=== PATIENT | male | born 1950 | race Caucasian/White ===

== ENCOUNTER 2018-12-19 11:04 | Inpatient (IN) | payer MEDICARE, OTHER, SELFPAY ==
[2018-12-03 15:24] VITALS: BP 122/78; PULSE 67; RESP 16; TEMP 36.7; O2SAT 97; BMI 35.8
--- NOTE | 2018-12-03 16:11 | SDCEKG_ITS ---
Test Reason : Blood Pressure : / mmHG Vent. Rate : 067 BPM Atrial Rate : 067 BPM P-R Int : 178 ms QRS Dur : 088 ms QT Int : 402 ms P-R-T Axes : 049 043 015 degrees QTc Int : 424 ms Normal sinus rhythm Low voltage QRS Borderline ECG Confirmed by ROSY GARCIA, SELMA ([id number]), slot editor TIA ROJAS ([id number]) on 12/05/2018 10:18:19 AM Referred By: Terence Hernandez Confirmed By:SELMA GALLEGOS MD
[2018-12-03 16:51] LABS: Anion Gap 11 (5-15); BUN 16 mg/dL (7-18); BUN/Creat Ratio 21.4 RATIO (10-20); Calcium,Total 8.3 mg/dL (8.5-10.1); Chloride 105 mmol/L (98-107); Creatinine, Serum 0.75 mg/dL (0.70-1.30); EST Glomerular Filtration Rate 110 mL/min (>60); Est Glom Filt Rate - Afr Amer 133 mL/min (>60); Estimated Creatinine Clearance 62.91 ml/min; Glucose 101 mg/dL (74-106); Potassium 3.8 mmol/L (3.5-5.1); Sodium Level 140 mmol/L (136-145)
--- NOTE | 2018-12-05 21:23 | HP.PCM_ITS ---
History and Physical DATE OF SURGERY: 12/19/2018 SCHEDULED PROCEDURE: right total knee polyethylene exchange HISTORY OF PRESENT ILLNESS: This is a 68-year-old male who is been having ongoing pain in his right knee since his previous surgery. Patient underwent a right total knee arthroplasty by Dr. Cedric Zhu on April 18, 2017. Patient states the right knee pain never completely went away but was better after surgery than before surgery. Patient states he has seen progressive worsening of his knee pain. He has increased pain going up and down stairs, standing for extended periods of time. He gets intermittent swelling. Activities increase his his right knee pain. Patient also complains of ongoing left knee pain. Patient has undergone physical therapy and home exercises for the right knee. He states he has had increased pain with therapy and exercises and bilateral knees. He continues to have episodes of instability and difficulty with getting in and out of a car or chair. Has difficult times going up and down stairs. Patient has had pain over the pes anserine and Gerdy's tubercle. Patient has had previous corticosteroid injection in the right knee pes anserine with no relief in symptoms. Patient has also had workup for infection which was negative with normal ESR and CRP. Patient will be getting surgical clearance from his primary care physician. Patient states he will be undergoing a stress test prescribed from his primary care physician. Patient does have medical history pertinent for gastroesophageal reflux disease, asthma, emphysema, seizure disorder, sleep apnea with the requirement for CPAP machine. Patient currently denies any chest pain, shortness of breath, fevers chills, recent infections. After failing conservative measures and discussing treatment options with Dr. Terence Hernandez, the patient wishes to proceed with a right total knee polyethylene exchange. REVIEW OF SYSTEMS: ROS: Const: Denies change in appetite, fever,or weight change. CV: Denies chest pain, heart murmur and irregular heartbeat. Resp: Denies cough, pneumonia, SOB, tuberculosis and wheezing. GI: Denies constipation, diarrhea, difficulty swallowing, heartburn, nausea, bloody stools and vomiting. : Urinary: denies incontinence. Musculo: Denies leg swelling, limp, trouble walking and weakness. Skin: Denies Raynaud's, history of shingles and tattoo. Neuro: Reports tremor but denies ambulatory dysfunction, dizziness and numbness/tingling. Psych: Reports insomnia, but denies anxiety and stress. Lupillo/Lymph: Denies anemia, bleeding/bruising tendency and past transfusion. Reviewed, no changes. PAST MEDICAL HISTORY: Advance Care Plan: No Advance Directives Effective Date: 01/30/2017 PMH: Medical Problems: Arthritis, Asthma, Emphysema, Osteoporosis, Seizure Disorder, Sleep Apnea, Hard Of Hearing, lumbar stenosis Accidents: None Surgical Hx: Hernia Repair, Knee Arthroscopy Lt, Knee Arthroscopy Rt, Carpal Tunnel Release Rt, RT Ankle Teeth Pulled/ Jaw Work - (2017) Deviated Septum Knee Replacement RT - (04/18/2017) [email or web address] Anesthesia Complications: None Assistive Devices: Glasses Reviewed, no changes. SOCIAL HISTORY: SH: Marital: .Occupation: Retired.Work Status: Retired.Hand Dominance: Right- handed. Personal Habits: Cigarette Use: Former Cigarette Smoker.Alcohol: Occasionally.Drug Use: Currently uses Marijuana.Enjoy Exercising: Exercises 1-3 X/Week. Reviewed, no changes. VITALS: Ht: 66 Wt: 222lb Wt k.699 BMI: 35.8 BP: 122/84 Pulse: 82 Resp: 18 T: 97.8 T: 36.6C ALLERGIES: Penicillin Codeine MEDICATIONS: Trazodone HCL 100 mg 1 by mouth every day, Doxazosin Mesylate 4 mg one PO daily, Orphenadrine Citrate ER 100 mg take one tab by mouth every 12 hours, Primidone 250 mg take one PO tid, Albuterol Inhaler 2 puffs as needed, Aspirin 81 mg 1 by mouth a day, Symbicort 80-4.5 mcg/Act 2 puffs PO bid, Lovastatin 20 mg 1 tab PO daily, Myrbetriq 50 mg take one tablet by mouth every day, Ropinirole HCL 1 mg take one tablet by mouth every evening, Omeprazole 20 mg 1po bid, Fluticasone Propionate Nasal [place] 24- Hour 50 mcg/Act bid, Etodolac 500 mg 1 tab PO bid, Hydroxyzine HCL 25 mg take 1 or 2 tablets by mouth three times daily or as needed PRE-OP EXAM: General appearance:NORMAL Other: Eyes: Conjunctivae and lids: NORMAL Pupils: ERR Ears, Nose, Mouth, and Throat: NORMAL Other: Inspection of lips, teeth and gums: NORMAL Other: Neck: Examination of neck: no masses noted. Respiratory: Assessment of respiratory effort: NORMAL Other: Auscultation of lungs: clear to auscultation no wheezes, rhonchi or rales. Cardiovascular: Auscultation of heart: regular rate and rhythm, no murmurs, gallops or rubs. Gastrointestinal: Exam of abdomen: soft, nontender, nondistended bowel sounds present. PHYSICAL EXAMINATION: Patient walks with an antalgic gait. Previous right knee incision is well- healed without erythema or signs of infection. Patient does have tenderness to palpation over the pes anserine region. Patient does have anterior translation approximately 4-5 mm with anterior drawer testing. He has widening medially and laterally with varus valgus stress. She has moderate effusion. Range of motion of the right knee 0 of extension to 120 flexion. Sensation intact to light touch. Neurovascularly intact. IMAGING STUDIES: Previous x-rays of the right knee reveal stable well fixed right total knee replacement with cemented tibial implant press-fit femoral implant. Implants appear stable and well fixed when compared to previous x-rays. Alignment is appropriate. IMPRESSION: 1. Painful right total knee arthroplasty 2. Gastroesophageal reflux disease 3. Asthma 4. Emphysema 5. Seizure disorder 6. Sleep apnea with use of CPAP 7. Lumbar stenosis 8. Osteoporosis PLAN: Dr. Terence Hernandez did discuss and review with the patient all treatment options including surgical versus nonsurgical options. Patient does wish to proceed with the above-stated procedure. Potential risks, benefits, and complications of the procedure were discussed in detail including but not limited to , infection, nerve and blood vessel damage, persistent pain, numbness, tingling, paresthesias, blood clot, pulmonary embolism, and requirement for possible further surgery. The patient expressed full understanding and has no further questions for the doctor. Patient does agree to proceed with the above-stated procedure and has signed the surgery consent form. This dictation was created using voice recognition software. Phonetic and/or grammatical errors may exist.. ___ I have re-examined the patient. There are no clinical changes since date of exam. ___ See progress notes for changes. ___ Dictated on admission Date: Time: Signature:
[2018-12-19] VITALS (17 sets, daily range): BP systolic 119–144; BP diastolic 62–90; PULSE 67–88; RESP 16–20; TEMP 36.5–37.2; O2SAT 93–97; BMI 35.8
[2018-12-19] MEDS: oxyCODONE HCl Cr 10 MG Tablet PO (12:01)
[2018-12-19] MEDS: Lactated Ringers 1,000 ML 999 ML IV (12:02)
[2018-12-19] MEDS: Acetaminophen 500 MG Tablet 1000 MG PO ×2 (12:02→21:10)
[2018-12-19] MEDS: Celecoxib 200 MG Capsule 400 MG PO (12:02)
--- NOTE | 2018-12-19 13:13 | RAD_ITS ---
STUDY: X-RAY - RIGHT KNEE REASON FOR EXAM: Male, 68 years old. Total knee replacement. TECHNIQUE: 2 view(s) of the knee. COMPARISON: None. FINDINGS: Normal visualized distal femur. Normal visualized proximal tibia and fibula. Normal proximal tibiofibular articulation. The patient is status post total knee replacement. There is good alignment. Postoperative soft tissue changes. RAD/Knee 1 or 2 Views IMPRESSION: Status post total knee replacement. There is good alignment. Postoperative soft tissue changes. Electronically Signed: Lazarus Rutherford, at 15:25 EDT , Service support ,
--- NOTE | 2018-12-19 14:13 | PCM.OPRPT ---
Report of Operation Date of Procedure: 12/19/18 Pre-Operative Diagnosis: Right painful total knee arthroplasty, global instability Post-Operative Diagnosis: Right painful total knee arthroplasty, global instability Surgery/Procedure Performed:: Right total knee 1 component revision, polyethylene exchange Description of Surgical Findings:: Stable knee, good patella tracking crown and bridge dental lab technician: Zenon Vázquez Type of Anesthesia:: Spinal Anesthesiologist: Artemio Latif Special Medications: 600 mg clindamycin, 1 g TXA at incision, 1 g TXA closure, 10 mg Decadron, joint cocktail (5 mg Duramorph, 30 mL of 0.5% Ropivicaine, 1000 units of epinephrine, 30 mg of Toradol) Estimated Blood Loss (mL): 30 Fluids Replaced: 1300 ML crystalloid Description of Procedure: 68 yo M history of R TKA in April 2017 presents with mobile instability and hamstring pain with peds anserine bursitis. Reviewed options were discussed the patient. Based on the symptoms and failure to respond to conservative measures including therapy a polyethylene exchange is recommended. Risks and benefits of the procedure were discussed with the patient including but not limited to blood loss, DVTs, PEs, neurovascular damage, infection, general risk of anesthesia including loss of life. Demonstrated understanding and was able to sign informed consent. On the date of procedure patient'sR lower extremity was marked in the preoperative area. The patient was then taken back to the operating room where the patient was placed on the table in the supine position. All bony prominences were identified a well-padded. Anesthesia assumed control of the C-spine and airway and remained controlled throughout the remainder of the procedure. A tourniquet was placed on the operative thigh and the leg was prepped in a sterile fashion. The surgeon then scrubbed at this time .Upon reentering the room left lower extremity was draped in a standard orthopedic fashion. A timeout was then called and everyone agreed upon the side, the site, the procedure to be performed, patient's identity and antibiotics given. A midline skin incision was made and sharp dissection was taken down through skin subcutaneous tissue and fat. Appropriate flaps were elevated medially and laterally. His arthrotomy was identified and the standard medial parapatellar incision was made and the patella was subluxed laterally. The standard deep MCL release was done. At this point an aggressive synovectomy commenced. Our attention was first turned towards the subpatellar pouch and all suspicious synovium and tissues were debrided. We then directed our attention towards medial lateral gutters were these tissues were aggressively debrided. Knee was then flexed up the polyethylene was removed. Once polyethylene was removed we did the remainder of the synovium in the medial and lateral gutters and along the lateral structures and MCL. We then debrided the posterior knee. Knee was flexed up and culture was taken from the femoral notch. And also there was a membrane beneath the tibial baseplate that was removed and sent for culture. After we had completed our synovectomy and were happy with the joint. A 6 L of normal saline were then irrigated throughout the wound with low-pressure lavage and the wound was once again explored. All remaining tissue that was suspicious was seen in the wound was once again irrigated with normal saline. We then trialed polyethylene sizes and selected a 13 mm medial congruent polyethylene was then opened and put back into place after appropriate trialing. Tourniquet was let down and hemostasis was obtained as well as possible. Once the final components were placed the wound was copiously irrigated with normal saline solution. The wound was closed in a layer ruff fashion using #1 vicryl interrupted sutures for the arthrotomy, 2-0 interrupted Vicryl for the subcuticular layer and yenny for final skin closure. A sterile compressive dressing was then placed. The patient was then awakened from anesthesia, transferred to the [facility] and transferred to the PACU for recovery. Post op plan Patient will be weight-bear as tolerated, activity as tolerated. Follow-up in the office in 2 weeks for wound check and staple removal. 81 mg aspirin twice daily for DVT prophylaxis. Grafts/Implants Used: Bull persona vitamin E E medial congruent right 13 mm polyethylene size 8 - Complications No intraoperative complications - Admit VTE Documentation VTE Present on Admission: No VTE Mechan Device Prophylaxis: SCD's, Thigh High KARYN Hose VTE Pharm Prophylaxis ordered?: Yes
--- NOTE | 2018-12-19 14:20 | OP.PCM_ITS ---
Report of Operation Date of Procedure: 12/19/18 Pre-Operative Diagnosis: Right painful total knee arthroplasty, global ins tability Post-Operative Diagnosis: Right painful total knee arthroplasty, global instability Surgery/Procedure Performed:: Right total knee 1 component revision, polyethylene exchange Description of Surgical Findings:: Stable knee, good patella tracking cloth doffer: Zenon Vázquez Type of Anesthesia:: Spinal Anesthesiologist: Artemio Latif Special Medications: 600 mg clindamycin, 1 g TXA at incision, 1 g TXA closure, 10 mg Decadron, joint cocktail (5 mg Duramorph, 30 mL of 0.5% Ropivicaine, 1000 units of epinephrine, 30 mg of Toradol) Estimated Blood Loss (mL): 30 Fluids Replaced: 1300 ML crystalloid Description of Procedure: 68 yo M history of R TKA in April 2017 presents with mobile instability and hamstring pain with peds anserine bursitis. Reviewed options were discussed the patient. Based on the symptoms and failure to respond to conservative measures including therapy a polyethylene exchange is recommended. Risks and benefits of the procedure were discussed with the patient including but not limited to blood loss, DVTs, PEs, neurovascular damage, infection, general risk of anesthesia including loss of life. Demonstrated understanding and was able to sign informed consent. On the date of procedure patient'sR lower extremity was marked in the preoperative area. The patient was then taken back to the operating room where the patient was placed on the table in the supine position. All bony prominences were identified a well-padded. Anesthesia assumed control of the C-spine and airway and remained controlled throughout the remainder of the procedure. A tourniquet was placed on the operative thigh and the leg was prepped in a sterile fashion. The surgeon then scrubbed at this time .Upon reentering the room left lower extremity was draped in a standard orthopedic fashion. A timeout was then called and everyone agreed upon the side, the site, the procedure to be performed, patient's identity and antibiotics given. A midline skin incision was made and sharp dissection was taken down through skin subcutaneous tissue and fat. Appropriate flaps were elevated medially and laterally. His arthrotomy was identified and the standard medial parapatellar incision was made and the patella was subluxed laterally. The standard deep MCL release was done. At this point an aggressive synovectomy commenced. Our attention was first turned towards the subpatellar pouch and all suspicious synovium and tissues were debrided. We then directed our attention towards medial lateral gutters were these tissues were aggressively debrided. Knee was then flexed up the polyethylene was removed. Once polyethylene was removed we did the remainder of the synovium in the medial and lateral gutters and along the lateral structures and MCL. We then debrided the posterior knee. Knee was flexed up and culture was taken from the femoral notch. And also there was a membrane beneath the tibial baseplate that was removed and sent for culture. After we had completed our synovectomy and were happy with the joint. A 6 L of normal saline were then irrigated throughout the wound with low-pressure lavage and the wound was once again explored. All remaining tissue that was suspicious was seen in the wound was once again irrigated with normal saline. We then trialed polyethylene sizes and selected a 13 mm medial congruent polyethylene was then opened and put back into place after appropriate trialing. Tourniquet was let down and hemostasis was obtained as well as possible. Once the final components were placed the wound was copiously irrigated with normal saline solution. The wound was closed in a layer ruff fashion using #1 vicryl interrupted sutures for the arthrotomy, 2-0 interrupted Vicryl for the subcuticular layer and yenny for final skin closure. A sterile compressive dressing was then placed. The patient was then awakened from anesthesia, transferred to the [facility] and transferred to the PACU for recovery. Post op plan Patient will be weight-bear as tolerated, activity as tolerated. Follow-up in the office in 2 weeks for wound check and staple removal. 81 mg aspirin twice daily for DVT prophylaxis. Grafts/Implants Used: Bull persona vitamin E E medial congruent right 13 mm polyethylene size 8 - Complications No intraoperative complications - Admit VTE Documentation VTE Present on Admission: No VTE Mechan Device Prophylaxis: SCD's, Thigh High KARYN Hose VTE Pharm Prophylaxis ordered?: Yes
[2018-12-19] MEDS: Scopolamine 1mg/72hr Patch 1 PATCH TD (15:09)
[2018-12-19] MEDS: oxyCODONE 5 MG Tablet PO ×2 (16:30→20:40)
[2018-12-19] MEDS: Ensure Clear 120 ML Liquid PO (18:33)
--- NOTE | 2018-12-19 19:44 | PCM.PN.HOSP ---
Subjective: Hospitalist consult for medical management This 68-year-old gentleman with multiple comorbidities as listed below had elective right total knee 1 component revision with polyethylene exchange Today on 12/19/2018. Patient had her right total knee arthroplasty by Dr. Zhu on April 18, 2017. Today surgery was done as patient continued pain in the right knee, getting progressively worse after first surgery. Patient has mild to moderate right knee pain 5/10 after surgery. Right knee dressing is intact with ice bag on it. Denies acute symptoms Chest pain, shortness of breath or palpitation. Past medical history: Seizure disorder, last one about 15 years ago had a breakthrough seizure after discontinuation about 15 years ago. Morbid obesity, obstructive sleep apnea, asthma/COPD. Lumbar spinal stenosis and hard of hearing Past surgical history: Left and right knee arthroscopy. Hernia repair. Right knee arthroplasty in April 2017 Vitals/I&O's: Vital Signs Temp Pulse Resp BP Pulse Ox 98.1 F 76 18 130/82 H 95 12/19/18 18:02 12/19/18 18:02 12/19/18 18:02 12/19/18 18:02 12/19/18 18:02 Oxygen Delivery Method Room Air Weight: 222 lb 0.017 oz Body Mass Index (BMI) 35.8 Intake and Output for Last 24 Hours 12/17/18 12/18/18 12/19/18 23:59 23:59 23:59 Intake Total 3000 / 3000 Balance 3000 / 3000 General: Alert, Oriented x3, Cooperative HEENT: Atraumatic, PERRLA, EOMI, Normocephalic, - - Chronic sinusitis. Oral: Dry Mucosa Neck: Supple, No JVD, Negative Carotid Bruits Lungs: No rhonchi, No wheeze, No rales, Diminished - Air entry slightly diminished in both lung bases Cardiovascular: Regular rate, Regular Rhythm, Normal S1, Normal S2, No murmurs Abdomen: Bowel Sounds Present, Soft, Non Tender, Non-Distended Extremities: No edema, Capillary Refill Less than 3 Seconds Skin: No rashes, No breakdown Musculoskeletal: Arthritic Changes, Tenderness - Postop right knee tenderness Neurological: Cranial nerves II-XII grossly intact, Deep Tendon Reflexes 2+/4 and Symmetrical, Neuro grossly intact Psych/Mental Status: Normal Affect, Appropriate Current Medications Acetaminophen (Tylenol) 1,000 mg PO Q8 RANDY Last Admin: 12/19/18 18:27 Dose: Not Given Albuterol Sulfate (Ventolin Aerosols) 2.5 mg INHALATION Q6H PRN PRN PRN Reason: COPD Albuterol Sulfate (Ventolin Aerosols) 2.5 mg INHALATION Q6HWA.RT [facility] Aspirin (Aspirin, Baby) 81 mg PO BID [facility] Atorvastatin Calcium (Lipitor) 5 mg PO QHS [facility] Budesonide (Pulmicort Aerosol) 0.5 mg INHALATION Q12H.RT [facility] Doxazosin Mesylate (Cardura) 4 mg PO QHS [facility] Famotidine (Pepcid) 20 mg PO DAILY [facility] Fluticasone Propionate (Flonase Nasal [place]) 2 spray NASAL PRN PRN PRN Reason: ALLERGIES Hydroxyzine Pamoate (Vistaril Pamoate Capsule) 50 mg PO QHS [facility] Clindamycin Phosphate 600 mg/ (Dextrose) 54 mls @ 162 mls/hr IV Q6H [facility] Stop: 12/20/18 07:19 Lactated Ringer's () 1,000 mls @ 100 mls/hr IV .Q10H [facility] Last Admin: 12/19/18 18:27 Dose: Not Given Ketorolac Tromethamine (Toradol) 15 mg IV Q6H PRN PRN PRN Reason: MILD-MOD PAIN (1-5/10) Melatonin (Melatonin) 10 mg PO QHS [facility] Meloxicam (Mobic) 7.5 mg PO BID [facility] Morphine Sulfate () 2 - 4 mg IV Q2H PRN PRN PRN Reason: SEVERE PAIN (6-10/10) Morphine Sulfate () 2 - 4 mg IV Q2H PRN PRN PRN Reason: SEVERE PAIN (6-10/10) Nutritional Formula (Lactose Free) (Ensure Clear) 120 ml PO TIDCM [facility] Last Admin: 12/19/18 18:33 Dose: 120 ml Ondansetron HCl (Zofran) 4 mg IV Q8H PRN PRN PRN Reason: NAUSEA Orphenadrine Citrate (Norflex Er) 100 mg PO Q12 [facility] Oxycodone HCl (Oxyir) 5 - 10 mg PO Q4H PRN PRN PRN Reason: MOD-SEVERE PAIN (4-10/10) Last Admin: 12/19/18 16:30 Dose: 10 mg Pantoprazole Sodium (Protonix) 40 mg PO DAILY [facility] Pramipexole Dihydrochloride (Mirapex) 0.5 mg PO QHS [facility] Primidone (Mysoline) 250 mg PO TID [facility] Last Admin: 12/19/18 18:27 Dose: Not Given Promethazine HCl (Phenergan) 12.5 mg IM Q6H PRN PRN; Protocol PRN Reason: NAUSEA/VOMITING Pseudoephedrine HCl (Sudafed) 30 mg PO Q8H PRN PRN PRN Reason: Cold Symptons Senna/Docusate Sodium (Senokot-S, [place]-Colace) 2 tablet PO BID [facility] Sodium Chloride () 5 - 15 ml IV UD PRN PRN Reason: SALINE FLUSH Trazodone HCl (Desyrel) 100 mg PO QHS [facility] Medical Necessity - Tobacco Use Smoking Status: Former smoker Assessment/Plan All Active Problems Status post total right knee replacement (Acute) Primary osteoarthritis of left knee (Acute) Primary osteoarthritis of right knee (Acute) Presence of artificial knee joint (Acute) Primary osteoarthritis of knees, bilateral (Acute) This 68-year-old gentleman with multiple comorbidities as listed below had elective right total knee 1 component revision with polyethylene exchange Today on 12/19/2018. Patient had her right total knee arthroplasty by Dr. Zhu on April 18, 2017. Today surgery was done as patient continued pain in the right knee, getting progressively worse after first surgery. Patient has mild to moderate right knee pain 5/10 after surgery. Right knee dressing is intact with ice bag on it. Denies acute symptoms Chest pain, shortness of breath or palpitation. EKG normal sinus rhythm with low voltage QRS. 1. Right knee 1 component revision with polyethylene exchange secondary to right knee DJD with continued pain after for surgery: Patient is being admitted on [facility] floor. PT and OT ordered. On aspirin 81 mg twice daily. Pain control. 2. Asthma/COPD, obstructive sleep apnea on CPAP and chronic sinusitis: Patient is on Pulmicort aerosol, and nasal spray. DuoNeb as needed. 3. Epilepsy disorder: Continue home medication 4. BPH: Patient did not had urine output after surgery which was completed afternoon today. Bladder scan every 4 hourly. A straight cath if urine retention is more than 200 mL. Continue doxazosin. 5. Other disorders include dyslipidemia, osteoporosis and chronic degenerative joint disease of knees and lumbar spinal stenosis: Patient has mild insomnia, and anxiety: On trazodone. Bowel and bladder care: On a stool softener. Code Visit Inpatient E&M: 38812 Init Hosp L2
[2018-12-19] MEDS: Budesonide Respules 0.5 MG/2 ML AMPUL.NEB. INHALATION (19:49)
--- NOTE | 2018-12-19 19:49 | PN_ITS ---
Subjective: Hospitalist consult for medical management This 68-year-old gentleman with multiple comorbidities as listed below had elective right total knee 1 component revision with polyethylene exchange Today on 12/19/2018. Patient had her right total knee arthroplasty by Dr. Zhu on April 18, 2017. Today surgery was done as patient continued pain in the right knee, getting progressively worse after first surgery. Patient has mild to moderate right knee pain 5/10 after surgery. Right knee dressing is intact with ice bag on it. Denies acute symptoms Chest pain, shortness of breath or palpitation. Past medical history: Seizure disorder, last one about 15 years ago had a breakthrough seizure after discontinuation about 15 years ago. Morbid obesity, obstructive sleep apnea, asthma/COPD. Lumbar spinal stenosis and hard of hearing Past surgical history: Left and right knee arthroscopy. Hernia repair. Right knee arthroplasty in April 2017 Vitals/I&O's: Vital Signs Temp Pulse Resp BP Pulse Ox 98.1 F 76 18 130/82 H 95 12/19/18 18:02 12/19/18 18:02 12/19/18 18:02 12/19/18 18:02 12/19/18 18:02 Oxygen Delivery Method Room Air Weight: 222 lb 0.017 oz Body Mass Index (BMI) 35.8 Intake and Output for Last 24 Hours 12/17/18 12/18/18 12/19/18 23:59 23:59 23:59 Intake Total 3000 / 3000 Balance 3000 / 3000 General: Alert, Oriented x3, Cooperative HEENT: Atraumatic, PERRLA, EOMI, Normocephalic, - - Chronic sinusitis. Oral: Dry Mucosa Neck: Supple, No JVD, Negative Carotid Bruits Lungs: No rhonchi, No wheeze, No rales, Diminished - Air entry slightly diminished in both lung bases Cardiovascular: Regular rate, Regular Rhythm, Normal S1, Normal S2, No murmurs Abdomen: Bowel Sounds Present, Soft, Non Tender, Non-Distended Extremities: No edema, Capillary Refill Less than 3 Seconds Skin: No rashes, No breakdown Musculoskeletal: Arthritic Changes, Tenderness - Postop right knee tenderness Neurological: Cranial nerves II-XII grossly intact, Deep Tendon Reflexes 2+/4 and Symmetrical, Neuro grossly intact Psych/Mental Status: Normal Affect, Appropriate Current Medications Acetaminophen (Tylenol) 1,000 mg PO Q8 [facility] Last Admin: 12/19/18 18:27 Dose: Not Given Albuterol Sulfate (Ventolin Aerosols) 2.5 mg INHALATION Q6H PRN PRN PRN Reason: COPD Albuterol Sulfate (Ventolin Aerosols) 2.5 mg INHALATION Q6HWA.RT [facility] Aspirin (Aspirin, Baby) 81 mg PO BID [facility] Atorvastatin Calcium (Lipitor) 5 mg PO QHS [facility] Budesonide (Pulmicort Aerosol) 0.5 mg INHALATION Q12H.RT [facility] Doxazosin Mesylate (Cardura) 4 mg PO QHS [facility] Famotidine (Pepcid) 20 mg PO DAILY [facility] Fluticasone Propionate (Flonase Nasal [place]) 2 spray NASAL PRN PRN PRN Reason: ALLERGIES Hydroxyzine Pamoate (Vistaril Pamoate Capsule) 50 mg PO QHS [facility] Clindamycin Phosphate 600 mg/ (Dextrose) 54 mls @ 162 mls/hr IV Q6H [facility] Stop: 12/20/18 07:19 Lactated Ringer's () 1,000 mls @ 100 mls/hr IV .Q10H [facility] Last Admin: 12/19/18 18:27 Dose: Not Given Ketorolac Tromethamine (Toradol) 15 mg IV Q6H PRN PRN PRN Reason: MILD-MOD PAIN (1-5/10) Melatonin (Melatonin) 10 mg PO QHS [facility] Meloxicam (Mobic) 7.5 mg PO BID [facility] Morphine Sulfate () 2 - 4 mg IV Q2H PRN PRN PRN Reason: SEVERE PAIN (6-10/10) Morphine Sulfate () 2 - 4 mg IV Q2H PRN PRN PRN Reason: SEVERE PAIN (6-10/10) Nutritional Formula (Lactose Free) (Ensure Clear) 120 ml PO TIDCM [facility] Last Admin: 12/19/18 18:33 Dose: 120 ml Ondansetron HCl (Zofran) 4 mg IV Q8H PRN PRN PRN Reason: NAUSEA Orphenadrine Citrate (Norflex Er) 100 mg PO Q12 [facility] Oxycodone HCl (Oxyir) 5 - 10 mg PO Q4H PRN PRN PRN Reason: MOD-SEVERE PAIN (4-10/10) Last Admin: 12/19/18 16:30 Dose: 10 mg Pantoprazole Sodium (Protonix) 40 mg PO DAILY [facility] Pramipexole Dihydrochloride (Mirapex) 0.5 mg PO QHS [facility] Primidone (Mysoline) 250 mg PO TID [facility] Last Admin: 12/19/18 18:27 Dose: Not Given Promethazine HCl (Phenergan) 12.5 mg IM Q6H PRN PRN; Protocol PRN Reason: NAUSEA/VOMITING Pseudoephedrine HCl (Sudafed) 30 mg PO Q8H PRN PRN PRN Reason: Cold Symptons Senna/Docusate Sodium (Senokot-S, Alma-Colace) 2 tablet PO BID [facility] Sodium Chloride () 5 - 15 ml IV UD PRN PRN Reason: SALINE FLUSH Trazodone HCl (Desyrel) 100 mg PO QHS [facility] Medical Necessity - Tobacco Use Smoking Status: Former smoker Assessment/Plan All Active Problems Status post total right knee replacement (Acute) Primary osteoarthritis of left knee (Acute) Primary osteoarthritis of right knee (Acute) Presence of artificial knee joint (Acute) Primary osteoarthritis of knees, bilateral (Acute) This 68-year-old gentleman with multiple comorbidities as listed below had elective right total knee 1 component revision with polyethylene exchange Today on 12/19/2018. Patient had her right total knee arthroplasty by Dr. Zhu on April 18, 2017. Today surgery was done as patient continued pain in the right knee, getting progressively worse after first surgery. Patient has mild to moderate right knee pain 5/10 after surgery. Right knee dressing is intact with ice bag on it. Denies acute symptoms Chest pain, shortness of breath or palpitation. EKG normal sinus rhythm with low voltage QRS. 1. Right knee 1 component revision with polyethylene exchange secondary to right knee DJD with continued pain after for surgery: Patient is being admitted on [facility] floor. PT and OT ordered. On aspirin 81 mg twice daily. Pain control. 2. Asthma/COPD, obstructive sleep apnea on CPAP and chronic sinusitis: Patient is on Pulmicort aerosol, and nasal spray. DuoNeb as needed. 3. Epilepsy disorder: Continue home medication 4. BPH: Patient did not had urine output after surgery which was completed afternoon today. Bladder scan every 4 hourly. A straight cath if urine retention is more than 200 mL. Continue doxazosin. 5. Other disorders include dyslipidemia, osteoporosis and chronic degenerative joint disease of knees and lumbar spinal stenosis: Patient has mild insomnia, and anxiety: On trazodone. Bowel and bladder care: On a stool softener. Code Visit Inpatient E&M: 43433 Init Hosp L2
[2018-12-19] MEDS: Albuterol 2.5 MG/3 ML VIAL.NEB. INHALATION (19:50)
[2018-12-19] MEDS: Aspirin 81 MG TAB.CHEW PO (21:10)
[2018-12-19] MEDS: Atorvastatin Calcium 10 MG Tablet 5 MG PO (21:11)
[2018-12-19] MEDS: Senna/Docusate Sodium 1 Tablet 2 TABLET PO (21:11)
[2018-12-19] MEDS: Orphenadrine 100 MG Tablet PO (21:12)
[2018-12-19] MEDS: Pramipexole Di-HCl 0.5 MG Tablet PO (21:16)
[2018-12-19] MEDS: Primidone 250 MG Tablet PO (21:24)
[2018-12-19] MEDS: Morphine 2 MG/ML Syringe IV (21:26)
[2018-12-19] MEDS: MELATONIN 10 MG TABLET PO (23:46)
[2018-12-19] MEDS: traZODone 100 MG Tablet PO (23:46)
[2018-12-19] MEDS: hydrOXYzine PAM 25 MG Capsule 50 MG PO (23:46)
[2018-12-19] MEDS: Doxazosin 4 MG Tablet PO (23:46)
--- NOTE | 2018-12-19 23:49 | CPS ---
Pt. unable to bring home BiPaP unit in. Pt. wouldn't like to rent hospital unit for the night either. Pt. told me he usually has oxygen bled into home unit at two liters. Set pt. up with a 28%/4L ventri mask for the night. Wanted to use the ventri mask because it would feel more like his home BiPaP mask.
[2018-12-19] MEDS: guaiFENesin 1,200 MG Tablet 1200 MG PO (23:52)
[2018-12-20] VITALS (8 sets, daily range): BP systolic 91–119; BP diastolic 48–75; PULSE 66–86; RESP 16–20; TEMP 36.4–37.1; O2SAT 93–96
[2018-12-20] MEDS: oxyCODONE 5 MG Tablet PO ×5 (01:18→23:45)
[2018-12-20] MEDS: 0.9% NaCl Peripheral Flush Adult/Peds IV ×4 (03:26→21:47)
[2018-12-20] MEDS: Morphine 2 MG/ML Syringe IV ×3 (03:26→21:47)
[2018-12-20] MEDS: Acetaminophen 500 MG Tablet 1000 MG PO ×3 (06:09→22:02)
[2018-12-20] MEDS: Primidone 250 MG Tablet PO ×3 (06:11→22:02)
[2018-12-20 06:15] LABS: Hematocrit 39.5 % (40-54); Hemoglobin 12.8 g/dl (13.0-16.5); Mean Corp Hgb Conc 32.4 g/gl (32-36); Mean Corpuscular Hgb 29.8 pg (27.0-32.0); Mean Corpuscular Volume 91.9 fL (80-94); Mean Platelet Vol. 9.6 fl (6.2-12.0); Platelet Count 234 K/mm3 (150-450); RBC Distribution Width SD 45.9 fl (35.1-43.9); White Blood Count 9.9 K/mm3 (4.4-11.0)
[2018-12-20 06:19] LABS: Anion Gap 7 (5-15); BUN 16 mg/dL (7-18); BUN/Creat Ratio 20.1 RATIO (10-20); Calcium,Total 8.1 mg/dL (8.5-10.1); Chloride 111 mmol/L (98-107); EST Glomerular Filtration Rate 102 mL/min (>60); Est Glom Filt Rate - Afr Amer 124 mL/min (>60); Estimated Creatinine Clearance 78.64 ml/min; Glucose 93 mg/dL (74-106); Potassium 4.3 mmol/L (3.5-5.1); Sodium Level 144 mmol/L (136-145)
[2018-12-20 06:20] LABS: Scan Indicated on CBC? Y/N NO
[2018-12-20] MEDS: Budesonide Respules 0.5 MG/2 ML AMPUL.NEB. INHALATION ×2 (07:03→19:35)
[2018-12-20] MEDS: Albuterol 2.5 MG/3 ML VIAL.NEB. INHALATION ×2 (07:03→19:35)
[2018-12-20] MEDS: Aspirin 81 MG TAB.CHEW PO ×2 (08:04→22:02)
[2018-12-20] MEDS: Senna/Docusate Sodium 1 Tablet 2 TABLET PO ×2 (08:04→22:02)
[2018-12-20] MEDS: Famotidine 20 MG Tablet PO (08:05)
[2018-12-20] MEDS: Pantoprazole Sodium 40 MG Tablet PO (08:06)
[2018-12-20] MEDS: Orphenadrine 100 MG Tablet PO ×2 (08:06→22:02)
[2018-12-20] MEDS: Mirabegron 50 MG TAB.ER.24H PO (08:06)
[2018-12-20] MEDS: guaiFENesin 1,200 MG Tablet 1200 MG PO ×2 (08:10→22:02)
--- NOTE | 2018-12-20 09:34 | PCM.PN.ORT ---
Subjective: The patient was sitting in bedside chair upon examination. Patient denies any chest pain, shortness of breath, dizziness, lightheadedness, nausea or vomiting, or calf pain. At rest patient states the pain is controlled. He does report pain in the right knee when he is up moving. He has not had physical therapy at this point. No adverse overnight events. Patient is concerned with the pain and physical therapy. Plan is for patient to go home when medically ready. Objective: Vital signs stable and afebrile. Patient is able to plantarflex and dorsiflex actively. Sensation is intact to light touch to saphenous, sural, superficial and deep peroneal, and tibial distribution. Dressing is clean dry and intact. Negative Homans bilaterally, negative signs and symptoms of DVT. - Physical Exam General: Alert, Oriented x3, Cooperative, No apparent distress Vital Signs Temp Pulse Resp BP Pulse Ox 97.6 F L 86 16 112/59 L 95 12/20/18 08:15 12/20/18 08:15 12/20/18 08:15 12/20/18 08:15 12/20/18 08:15 Oxygen Flow Rate (L/min) 4 Oxygen Delivery Method Room Air Weight: 100.698 kg Body Mass Index (BMI) 35.8 Intake and Output for Last 24 Hours 12/18/18 12/19/18 12/20/18 23:59 23:59 23:59 Intake Total 3990 / 3990 383 / 383 Output Total 600 / 600 600 / 600 Balance 3390 / 3390 -217 / -217 Laboratory Tests Past 24 Hrs 12/20/18 12/20/18 05:34 05:34 WBC 9.9 RBC 4.30 L Hgb 12.8 L Hct 39.5 L MCV 91.9 MCH 29.8 MCHC 32.4 RDW 14.0 RDW Differential 45.9 H Plt Count 234 MPV 9.6 Sodium 144 Potassium 4.3 Chloride 111 H Carbon Dioxide 26.0 Anion Gap 7 BUN 16 Creatinine 0.80 Estim Creat Clear Calc 78.64 Est GFR (MDRD) Af Amer 124 Est GFR (MDRD) Non-Af 102 BUN/Creatinine Ratio 20.1 H Glucose 93 Calcium 8.1 L Medical Necessity - Tobacco Use Smoking Status: Former smoker Assessment/Plan All Active Problems Status post total right knee replacement (Acute) Primary osteoarthritis of left knee (Acute) Primary osteoarthritis of right knee (Acute) Presence of artificial knee joint (Acute) Primary osteoarthritis of knees, bilateral (Acute) 1. S/P right revision total knee arthroplasty with polyethylene exchange POD #1 2. Continue Pain Medications: Tylenol and OxyIR 3. DVT Prophylaxis: Aspirin 81 mg twice daily with food for 4 weeks postoperatively 4. PT/OT: Weightbearing as tolerated 5. H & H: 12.8/39.5, asymptomatic 6. Encouraged Incentive Spirometry 7. Continue postoperative medical management per medicine 8. Disposition: Patient is continued to have some pain associated with weightbearing today. I would like to see how patient does with physical therapy today. If patient pain is well controlled tomorrow and tolerates therapy plan will be for discharge home tomorrow.
--- NOTE | 2018-12-20 09:37 | PCM.DC.TKR ---
Discharge Diet: No Restrictions Discharge Activity: May Not Drive May shower in (days): 1 - Turned dressing away from water Ice area for (Minutes): 20 - every hour while awake. Weight Bearing Status: Weight bearing as tolerated Elevate: Operative Extremity Additional Activity Instructions:: Wear elastic stockings for 2 weeks after your surgery. Call your doctor if your incision/area has: Continuous Slow Oozing, Sudden Increased Bleeding, Increased Pain/ Swelling, Increased Redness, Foul Smelling Discharge Call your doctor if you observe: Fever of 101 or Higher, Coldness, Increased Pain, Numbness or Tingling, Change in Color, Calf discomfort, Uncontrolled pain Remove Dressing in (days):: 3 - Okay to remove dressing on December 24, 2018 Additional Instructions: Follow [facility] postop instructions Allergies/Adverse Reactions: Allergies Penicillins Allergy (Verified 12/19/18 11:32) Itching codeine Adverse Reaction (Verified 12/19/18 11:32) Itching Medications to take at Discharge Albuterol Inhaler [Ventolin Hfa] 2 puff INHALATION Q6H PRN PRN 04/05/17 Ascorbic Acid [Vitamin C] 500 mg PO DAILY@0800 04/05/17 Doxazosin Mesylate [Cardura] 4 mg PO QHS 04/05/17 Fluticasone 0.05% [Flonase Nasal [place]] 2 spray NASAL PRN PRN 04/05/17 Glucosa Wolf 2Kcl/Chondroitin Wolf [Glucosamine-Chondroitin Tablet] 1 each PO DAILY 04/05/17 Hydroxyzine HCl 50 mg PO QHS 04/05/17 Lovastatin [Mevacor] 20 mg PO DAILY 04/05/17 Melatonin 10 mg PO QHS 04/05/17 Multivitamin [Multiple Vitamins] 1 each PO DAILY 04/05/17 Orphenadrine Citrate [Orphenadrine Citrate ER] 100 mg PO Q12H 04/05/17 Primidone [Mysoline] 250 mg PO TID 04/05/17 Trazodone HCl 100 mg PO QHS 04/05/17 Vitamin B Comp W-C [Allbee W/C Caplet, Thera B Comp/C] 1 capsule PO DAILY 04/05/17 Pseudoephedrine [Sudafed] 30 mg PO Q8H PRN PRN tablet 05/09/17 Acetaminophen [Tylenol] 1,000 mg PO Q8 12/03/18 Aspirin [Aspirin EC] 81 mg PO DAILY 12/03/18 Budesonide/Formoterol 160/4.5 [Symbicort 160/4.5 Mcg Inhaler (SP)] 2 puff INHALATION BID 12/03/18 Etodolac [Etodolac ER] 500 mg PO BID 12/03/18 Mirabegron [Myrbetriq] 50 mg PO DAILY 12/03/18 Omeprazole 40 mg PO DAILY 12/03/18 Ropinirole HCl 1 mg PO QHS 12/03/18 Primary Care Physician: Turner Holley [Primary Care Provider] - Test Results: Test results from this visit will be discussed in further detail at your follow-up appointment, if applicable. Please Follow Up With: Physical therapy When: 12/24/18 @ 2:00 with Yao Please Follow Up With: Zenon Vázquez PA-C When: 01/02/19 @ 11:00
--- NOTE | 2018-12-20 11:15 | CASEMGMT ---
RN ASHLEE Face to Face with patient for initial transition planning/care coordination assessment. RN ASHLEE introduced self and role at [facility]. Patient lying in bed, alert and oriented. Patient willing to participate in assessment and is able to answer all questions appropriately. Care providers, pharmacy, and demographics verified. Patient wishes to discharge home and has outpatient therapy setup with [facility] in [facility]. Patient states he has no further needs or concerns at this time. CM to follow for discharge planning needs that may arise. PCP: Kishan Specialists: aniyah Hernandez Preferred Pharmacy: [facility] Insurance: [facility] Prescription Benefit: Yes Living Will/HPOA: None LNOK: Living Arrangements: Patient lives with in 2 story home with 1st floor setup. Patient states he is independent at home. Transportation: DME/HHC: Patient has walker and shower chair at home. Disposition Plan: Patient to discharge home with outpatient therapy, family support, and follow-up plans in place. Prerna NICKERSON, RN, CM
--- NOTE | 2018-12-20 16:52 | PN_ITS ---
Subjective: She was seen and examined today, I talked briefly with orthopedic surgery concerning his care today. Patient states he has post incisional pain but otherwise is doing well. - Physical Exam General: Alert, Oriented x3, Cooperative, No apparent distress, Well developed, Well nourished HEENT: Atraumatic, PERRLA, EOMI, Normocephalic Oral: Moist Mucosa Neck: Supple, No JVD, Negative Carotid Bruits, No Nuchal Rigidity, Trachea Midline, Thyroid Normal Size and Texture Lungs: Clear to auscultation, Normal air movement, No rhonchi, No wheeze, No rales Cardiovascular: Regular rate, Regular Rhythm, Normal S1, Normal S2, No murmurs, No Ectopic Activity Abdomen: Bowel Sounds Present, Soft, Non Tender, Non-Distended Extremities: No clubbing, No cyanosis, Capillary Refill Less than 3 Seconds Skin: No rashes Neurological: Cranial nerves II-XII grossly intact, Neuro grossly intact, Senso ry exam intact to light touch and pain, Coordination normal Psych/Mental Status: Normal Affect, Appropriate, Alert and oriented to time, place, person, mood and affect Vital Signs Temp Pulse Resp BP Pulse Ox 98.0 F 81 18 94/48 L 96 12/20/18 14:15 12/20/18 14:15 12/20/18 14:15 12/20/18 14:15 12/20/18 14:15 Oxygen Flow Rate (L/min) 4 Oxygen Delivery Method Room Air Weight: 100.698 kg Body Mass Index (BMI) 35.8 Intake and Output for Last 24 Hours 12/18/18 12/19/18 12/20/18 23:59 23:59 23:59 Intake Total 3990 / 3990 383 / 383 Output Total 600 / 600 600 / 600 Balance 3390 / 3390 -217 / -217 Microbiology Past 72 Hours 12/19/18 15:03 Gram Stain - Final Tissue - Knee Wound Culture - Preliminary No growth-Final to follow 12/19/18 15:03 Gram Stain - Final Tissue - Knee Wound Culture - Preliminary No growth-Final to follow 12/19/18 15:03 Gram Stain - Final Biopsy - Leg, Right Wound Culture - Preliminary No growth-Final to follow Laboratory Tests Past 24 Hrs 12/20/18 12/20/18 05:34 05:34 WBC 9.9 RBC 4.30 L Hgb 12.8 L Hct 39.5 L MCV 91.9 MCH 29.8 MCHC 32.4 RDW 14.0 RDW Differential 45.9 H Plt Count 234 MPV 9.6 Sodium 144 Potassium 4.3 Chloride 111 H Carbon Dioxide 26.0 Anion Gap 7 BUN 16 Creatinine 0.80 Estim Creat Clear Calc 78.64 Est GFR (MDRD) Af Amer 124 Est GFR (MDRD) Non-Af 102 BUN/Creatinine Ratio 20.1 H Glucose 93 Calcium 8.1 L Medical Necessity - Tobacco Use Smoking Status: Former smoker Assessment/Plan All Active Problems Status post total right knee replacement (Acute) Primary osteoarthritis of left knee (Acute) Primary osteoarthritis of right knee (Acute) Presence of artificial knee joint (Acute) Primary osteoarthritis of knees, bilateral (Acute) #1 epilepsy-continue home medication #2 BPH #3 asthma/chronic obstructive pulmonary disease #4 obstructive sleep apnea #5 status postop day #1 right total knee 1 component revision, polyethylene exchange-continue PT OT Code Visit Inpatient E&M: 33698 Subs Hosp L2
--- NOTE | 2018-12-20 19:21 | EKGRS_ITS ---
Test Reason : CHEST PAIN Blood Pressure : / mmHG Vent. Rate : 075 BPM Atrial Rate : 075 BPM P-R Int : 166 ms QRS Dur : 082 ms QT Int : 380 ms P-R-T Axes : 038 033 040 degrees QTc Int : 424 ms Normal sinus rhythm Low voltage QRS Borderline ECG When compared with ECG of 03-DEC-2018 15:48, Non-specific change in ST segment in Inferior leads Confirmed by BERYL MEDRANO ([id number]), material expeditor TIA ROJAS ([id number]) on 12/24/2018 5:11:46 PM Referred By: Terence Hernandez Confirmed By:BERYL MEDRANO
--- NOTE | 2018-12-20 19:58 | NURSING ---
Pt c/o 5/10 rt knee pain. Oxyir last given at 1805. Toradol obtained and scanned. Upon flushing pt's IV with saline, site was tender and leaking. Pt decided to hold off on getting a new IV. Toradol discarded and IV discontinued. No redness or edema noted to IV site. Polar care applied to rt knee to assist with pain.
[2018-12-20] MEDS: Meloxicam 7.5 MG Tablet PO (22:02)
[2018-12-20] MEDS: Atorvastatin Calcium 10 MG Tablet 5 MG PO (22:02)
[2018-12-20] MEDS: hydrOXYzine PAM 25 MG Capsule 50 MG PO (22:02)
[2018-12-20] MEDS: traZODone 100 MG Tablet PO (23:45)
[2018-12-20] MEDS: MELATONIN 10 MG TABLET PO (23:45)
[2018-12-20] MEDS: Doxazosin 4 MG Tablet PO (23:45)
[2018-12-20] MEDS: Pramipexole Di-HCl 0.5 MG Tablet PO (23:48)
[2018-12-21 02:09] VITALS: BP 111/56; PULSE 69; RESP 16; TEMP 36.4; O2SAT 96
[2018-12-21] MEDS: oxyCODONE 5 MG Tablet PO ×2 (03:55→10:18)
[2018-12-21 06:21] LABS: Hematocrit 39.3 % (40-54); Hemoglobin 12.7 g/dl (13.0-16.5); Mean Corp Hgb Conc 32.3 g/gl (32-36); Mean Corpuscular Hgb 29.7 pg (27.0-32.0); Mean Corpuscular Volume 91.8 fL (80-94); Mean Platelet Vol. 9.7 fl (6.2-12.0); Platelet Count 225 K/mm3 (150-450); RBC Distribution Width SD 46.4 fl (35.1-43.9); Red Blood Count 4.28 M/mm3 (4.6-6.2); White Blood Count 7.3 K/mm3 (4.4-11.0)
[2018-12-21] MEDS: Primidone 250 MG Tablet PO (06:21)
[2018-12-21 06:22] LABS: Scan Indicated on CBC? Y/N NO
[2018-12-21] MEDS: Acetaminophen 500 MG Tablet 1000 MG PO (06:22)
--- NOTE | 2018-12-21 06:52 | PCM.PN.ORT ---
Subjective: The patient was sitting in bed upon examination. Patient denies any chest pain, shortness of breath, dizziness, lightheadedness, nausea or vomiting, or calf pain. Pain is controlled on medications. No adverse overnight events. Patient's chief complaint is stiffness in the knee. He would like to get up and walk more than he is able to. He has tolerated physical therapy. Objective: Vital signs stable and afebrile. Patient is able to plantarflex and dorsiflex actively. Sensation is intact to light touch to saphenous, sural, superficial and deep peroneal, and tibial distribution. Dressing is clean dry and intact. Negative Homans bilaterally, negative signs and symptoms of DVT. - Physical Exam General: Alert, Oriented x3, Cooperative, No apparent distress Vital Signs Temp Pulse Resp BP Pulse Ox 97.5 F L 69 16 111/56 L 96 12/21/18 02:09 12/21/18 02:09 12/21/18 02:09 12/21/18 02:09 12/21/18 02:09 Oxygen Flow Rate (L/min) 2 Oxygen Delivery Method CPAP Weight: 100.698 kg Body Mass Index (BMI) 35.8 Intake and Output for Last 24 Hours 12/19/18 12/20/18 12/21/18 23:59 23:59 23:59 Intake Total 3990 / 3990 1183 / 1183 600 / 600 Output Total 600 / 600 600 / 600 Balance 3390 / 3390 583 / 583 600 / 600 Microbiology Past 72 Hours 12/19/18 15:03 Gram Stain - Final Tissue - Knee Wound Culture - Preliminary No growth-Final to follow 12/19/18 15:03 Gram Stain - Final Tissue - Knee Wound Culture - Preliminary No growth-Final to follow 12/19/18 15:03 Gram Stain - Final Biopsy - Leg, Right Wound Culture - Preliminary No growth-Final to follow Laboratory Tests Past 24 Hrs 12/21/18 05:20 WBC 7.3 RBC 4.28 L Hgb 12.7 L Hct 39.3 L MCV 91.8 MCH 29.7 MCHC 32.3 RDW 14.0 RDW Differential 46.4 H Plt Count 225 MPV 9.7 Medical Necessity - Tobacco Use Smoking Status: Former smoker Assessment/Plan All Active Problems Status post total right knee replacement (Acute) Primary osteoarthritis of left knee (Acute) Primary osteoarthritis of right knee (Acute) Presence of artificial knee joint (Acute) Primary osteoarthritis of knees, bilateral (Acute) 1. S/P right revision total knee arthroplasty with polyethylene exchange POD #2 2. Continue Pain Medications: Tylenol and OxyIR 3. DVT Prophylaxis: Aspirin 81 mg twice daily with food for 4 weeks postoperatively 4. PT/OT: Weightbearing as tolerated 5. H & H: 12.7/39.3, asymptomatic 6. Encouraged Incentive Spirometry 7. Continue postoperative medical management per medicine 8. Disposition: Orthopedically stable, plan will be for discharge home today. Prescriptions will be E scribed to [facility]. Patient will follow-up per postop instructions. Patient does have outpatient physical therapy established.
--- NOTE | 2018-12-21 06:58 | PCM.DC.TKR ---
Discharge Diet: No Restrictions Discharge Activity: May Not Drive May shower in (days): 1 - Turned dressing away from water Ice area for (Minutes): 20 - every hour while awake. Weight Bearing Status: Weight bearing as tolerated Elevate: Operative Extremity Additional Activity Instructions:: Wear elastic stockings for 2 weeks after your surgery. Call your doctor if your incision/area has: Continuous Slow Oozing, Sudden Increased Bleeding, Increased Pain/ Swelling, Increased Redness, Foul Smelling Discharge Call your doctor if you observe: Fever of 101 or Higher, Coldness, Increased Pain, Numbness or Tingling, Change in Color, Calf discomfort, Uncontrolled pain Change Dressing in (Days):: 1 - and daily as needed. Remove Dressing in (days):: 3 - Okay to remove dressing on December 24, 2018 Additional Instructions: Follow [facility] postop instructions Do not take [id number] supplements for 2 weeks postoperatively Do not take any other anti-inflammatories while taking meloxicam/Mobic. Allergies/Adverse Reactions: Allergies Penicillins Allergy (Verified 12/19/18 11:32) Itching codeine Adverse Reaction (Verified 12/19/18 11:32) Itching Medications to take at Discharge Albuterol Inhaler [Ventolin Hfa] 2 puff INHALATION Q6H PRN PRN 04/05/17 Ascorbic Acid [Vitamin C] 500 mg PO DAILY@0800 04/05/17 Doxazosin Mesylate [Cardura] 4 mg PO QHS 04/05/17 Fluticasone 0.05% [Flonase Nasal [place]] 2 spray NASAL PRN PRN 04/05/17 Hydroxyzine HCl 50 mg PO QHS 04/05/17 Lovastatin [Mevacor] 20 mg PO DAILY 04/05/17 Melatonin 10 mg PO QHS 04/05/17 Multivitamin [Multiple Vitamins] 1 each PO DAILY 04/05/17 Orphenadrine Citrate [Orphenadrine Citrate ER] 100 mg PO Q12H 04/05/17 Primidone [Mysoline] 250 mg PO TID 04/05/17 Trazodone HCl 100 mg PO QHS 04/05/17 Vitamin B Comp W-C [Allbee W/C Caplet, Thera B Comp/C] 1 capsule PO DAILY 04/05/17 Pseudoephedrine [Sudafed] 30 mg PO Q8H PRN PRN tablet 05/09/17 Budesonide/Formoterol 160/4.5 [Symbicort 160/4.5 Mcg Inhaler (SP)] 2 puff INHALATION BID 12/03/18 Mirabegron [Myrbetriq] 50 mg PO DAILY 12/03/18 Omeprazole 40 mg PO DAILY 12/03/18 Ropinirole HCl 1 mg PO QHS 12/03/18 Acetaminophen [Tylenol] 1,000 mg PO Q8 #90 tablet 12/21/18 Aspirin [Aspirin, Baby] 81 mg PO BID #60 tab.chew 12/21/18 Meloxicam [Mobic] 7.5 mg PO BID #60 tablet 12/21/18 Oxycodone [Oxyir] 5 - 10 mg PO Q4H PRN PRN 5 Days #60 tablet 12/21/18 The following prescriptions were given: Oxycodone [Oxyir] 5 - 10 mg PO Q4H PRN PRN 5 Days #60 tablet PRN Reason: Mod-Severe Pain (4-1010) Acetaminophen [Tylenol] 1,000 mg PO Q8 #90 tablet Aspirin [Aspirin, Baby] 81 mg PO BID #60 tab.chew Meloxicam [Mobic] 7.5 mg PO BID #60 tablet Primary Care Physician: Turner Holley [Primary Care Provider] - Test Results: Test results from this visit will be discussed in further detail at your follow-up appointment, if applicable. Please Follow Up With: Physical therapy When: 12/24/18 @ 2:00 with Yao Please Follow Up With: Zenon Vázquez PA-C When: 01/02/19 @ 11:00
[2018-12-21 10:11] VITALS: BP 122/69; PULSE 80; RESP 16; TEMP 36.7; O2SAT 94
[2018-12-21] MEDS: Aspirin 81 MG TAB.CHEW PO (10:19)
[2018-12-21] MEDS: Mirabegron 50 MG TAB.ER.24H PO (10:19)
[2018-12-21] MEDS: Meloxicam 7.5 MG Tablet PO (10:19)
[2018-12-21] MEDS: guaiFENesin 1,200 MG Tablet 1200 MG PO (10:19)
[2018-12-21] MEDS: Orphenadrine 100 MG Tablet PO (10:20)
[2018-12-21] MEDS: Famotidine 20 MG Tablet PO (10:20)
[2018-12-21] MEDS: Pantoprazole Sodium 40 MG Tablet PO (10:21)
[2018-12-21] MEDS: Senna/Docusate Sodium 1 Tablet 2 TABLET PO (10:21)
[2018-12-21] MEDS: 0.9% NaCl Peripheral Flush Adult/Peds IV (12:46)
[2018-12-21] MEDS: Ketorolac 15 MG/ML Vial IV (12:46)
== END 2018-12-21 15:39 | disposition home or self-care (01) | DRG 489 ==
LOC: ACINP 11:05 → MS3 17:24
PROVIDERS: Admitting Provider Specialist; Family Provider Family Medicine; PCP Family Medicine; Referring Provider Specialist; Visit Provider Internal Medicine
PROC: 0SPC09Z Removal of Liner from Right Knee Joint, Open Approach (ICD-10-PCS; CPT 27487; principal; 2018-12-19 12:55)
DX: T84.84XA Pain due to internal orthopedic prosthetic devices, implants and grafts, initial encounter (principal); T84.022A Instability of internal right knee prosthesis, initial encounter; Z96.651 Presence of right artificial knee joint; G40.909 Epilepsy, unspecified, not intractable, without status epilepticus; G47.33 Obstructive sleep apnea (adult) (pediatric); M17.12 Unilateral primary osteoarthritis, left knee; J44.9 Chronic obstructive pulmonary disease, unspecified; J32.9 Chronic sinusitis, unspecified; N40.0 Benign prostatic hyperplasia without lower urinary tract symptoms; Z87.891 Personal history of nicotine dependence; M81.0 Age-related osteoporosis without current pathological fracture; M48.061 Spinal stenosis, lumbar region without neurogenic claudication; K21.9 Gastro-esophageal reflux disease without esophagitis; E78.5 Hyperlipidemia, unspecified
CPT/HCPCS: 36415; 73560; 80048; 85027; 87015; 87070; 87075; 87081; 87102; 87116; 87205; 87206; 93005; 94640; 97110; 97116; 97161; 97166; 97530; 99251; C1776; J7120; A4216; G0463